=== PATIENT | female | born 2000 | race African-American/Black ===

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

== ENCOUNTER 2021-02-07 19:54 | Emergency (ER) | payer OTHER ==
[~2021-02-07] VITALS: Ht 162.6 cm; Wt 82.9 kg
[2021-02-07 19:54] VITALS: BP 135/82
[2021-02-07] MEDS ORDERED: CLONI1TA PO (20:04)
== END 2021-02-07 22:11 | disposition home or self-care (01) ==
LOC: M ED 19:54
DX: F43.0 Acute stress reaction (principal); F32.9 Major depressive disorder, single episode, unspecified; Z88.0 Allergy status to penicillin